=== PATIENT | female | born 1970 | race Two or more races ===

== ENCOUNTER 2023-07-30 06:49 | Day surgery (SDC) | payer MEDICAID ==
[~2023-07-30] VITALS: Ht 160 cm; Wt 95.7 kg
[2023-07-30] VITALS (8 sets, daily range): BP systolic 141–165; BP diastolic 88–112; PULSE 71–83; RESP 12–20; O2SAT 91–96
[~2023-07-30 06:49] MED LIST: ATOR-47 PO; CANA300T PO; LOSA100T58 PO; METH-1181 PO; NIFE1TAB30 PO; OXYB2.5T PO; SEMA2INJ3 SC
[2023-07-30] MEDS ORDERED: HEPARIN IN NS 1000Units/500mL 1,500 ML ONE (07:37)
[2023-07-30] MEDS ORDERED: LIDOCAINE 2%HCL (LOCAL ANESTH.) INJ 20ML MDV ONE ×2 (07:37→08:22)
[2023-07-30] MEDS ORDERED: IODIXANOL 320MG/ML 100ML BTL IV ONE ×3 (07:37→09:07)
[2023-07-30] MEDS ORDERED: ANGIOMAX 250 MG VIAL IV ONE (08:32)
[2023-07-30] MEDS ORDERED: HEPARIN SODIUM (PORCINE) 5000 UNITS/ML 1ML VIAL ONE (08:32)
[2023-07-30] MEDS ORDERED: MIDAZOLAM HCL 2MG/2ML 2ml VIAL (1mg/ml) ONE (08:32)
[2023-07-30] MEDS ORDERED: fentaNYL CITRATE 100 MCG/2 ML VL ONE (08:32)
[2023-07-30] MEDS ORDERED: SODIUM CHL 0.9% 0 ML ONE (08:32)
[2023-07-30] MEDS ORDERED: VERAPAMIL 2.5MG/ML INJ 2ML VIAL IV ONE (08:32)
[2023-07-30] MEDS ORDERED: METF-370 PO (10:33)
== END 2023-07-30 11:34 | disposition home or self-care (01) ==
LOC: CATH 06:49
PROVIDERS: ATTEND Internal Medicine
DX: R94.39 Abnormal result of other cardiovascular function study (principal); I25.118 Atherosclerotic heart disease of native coronary artery with other forms of angina pectoris; I10 Essential (primary) hypertension; E11.9 Type 2 diabetes mellitus without complications; E78.5 Hyperlipidemia, unspecified; Z79.899 Other long term (current) drug therapy; Z98.890 Other specified postprocedural states
CPT/HCPCS: 93458; C1725; C1894; J1644; J2250; J3010; J7030; Q9967; 99152